=== PATIENT | female | born 1950 | race Caucasian/White ===

== ENCOUNTER → 2017-02-17 | Outpatient (CLI) | payer MEDICARE ==
[~2017-02-17] MED LIST: ASPIRIN PO; FOSAMAX PO; KETOPROFEN PO; LOTREL 5/10 MG1 CAP PO; LOTREL PO; UNK B/P MED; WALGREENS PHARMACY
[2017-02-17 12:21] LABS: THYROID STIMULATING HORMONE 0.8 uIU/ml (0.34-5.60)
[2017-02-17 12:26] LABS: FREE T3 3.5 pg/mL (2.5-3.9)
[2017-02-17 12:28] LABS: FREE THYROXIN (T4) 0.89 ng/dL (0.58-1.64)
== END | disposition home or self-care (01) ==
LOC: CLAB 10:44
PROVIDERS: Internal Medicine Endocrinology, Diabetes & Metabolism
DX: E05.10 Thyrotoxicosis with toxic single thyroid nodule without thyrotoxic crisis or storm (principal)
CPT/HCPCS: 36415; 84439; 84443; 84481